=== PATIENT | male | born 1970 | race African-American/Black ===

== ENCOUNTER 2020-02-22 12:19 | Emergency (ER) | payer OTHER ==
--- NOTE | 2020-02-22 12:34 | PDOC ---
Rapid Medical Evaluation Time Seen by Provider: 02/22/20 12:29 Medical Evaluation: Allergies Allergy/AdvReac Type Severity Reaction Status Date / Time No Known Allergies Allergy Verified 05/17/16 21:55 02/22/20 12:29 Pt presents for evaluation of elevated BP. Sent from for a pressure of 210/90. Pt off his HTN meds as he is switching PCP and ran out of medication. Currently asymptomatic Exam: RRR, S1S2 present, no acute distress. BP here 182/130 Orders: EKG; defer other orders to provider Pt to proceed to the ER for further evaluation Discharge Disposition - Diagnosis Hypertension - Referrals - Patient Instructions - Post Discharge Activity
[2020-02-22 12:35] VITALS: TEMP 98.4; BMI 37.2
[2020-02-22] MEDS ORDERED: LISINOPRIL 10 MG TABLET (FP) PO ONE (13:20)
[2020-02-22] MEDS ORDERED: amLODIPine BESYLATE 5 MG TABLET (FP) PO ONE (13:20)
[2020-02-22] MEDS ORDERED: LISINOPRIL 5 MG TABLET (FP) ONE (13:35)
[2020-02-22] MEDS ORDERED: amLODIPine BESYLATE 5 MG TABLET (FP) ONE (13:40)
--- NOTE | 2020-02-22 14:05 | EKG ---
Test Reason : Blood Pressure : / mmHG Vent. Rate : 087 BPM Atrial Rate : 087 BPM P-R Int : 180 ms QRS Dur : 092 ms QT Int : 362 ms P-R-T Axes : 061 -36 014 degrees QTc Int : 435 ms NORMAL SINUS RHYTHM LEFT AXIS DEVIATION POSSIBLE ANTERIOR INFARCT , AGE UNDETERMINED ABNORMAL ECG NO PREVIOUS ECGS AVAILABLE Confirmed by PANKAJ TUCKER MD ([id number]) on 02/22/2020 2:05:43 PM Referred By: Confirmed By:PANKAJ TUCKER MD
--- NOTE | 2020-02-22 15:19 | PDOC ---
History of Present Illness - General Chief Complaint: Blood Pressure Problem Stated Complaint: HYPERTENSION Time Seen by Provider: 02/22/20 12:29 - History of Present Illness Initial Comments: 02/22/20 15:22 49yo M w/ PMHx HTN sent from urgent care where his BP was elevated. Pt ran out of daily meds 2wks ago. Last night he ate a big salty fish dinner. This AM, between the dinner and the having no meds, he went to urgent care to request refills. They found him hypertensive and sent him to the ED. On presentation he reports no symptoms. -no dizziness or headache. -no vision or hearing changes. - no belly, chest, or back pain. - no weakness, paresthesia, or altered mentation. - no n/v/d. no recent illness. Past History - Medical History Allergies/Adverse Reactions: Allergies Allergy/AdvReac Type Severity Reaction Status Date / Time No Known Allergies Allergy Verified 02/22/20 12:29 Home Medications: Ambulatory Orders Amlodipine Besylate 5 mg PO DAILY 14 Days #14 tablet 02/22/20 Amlodipine Besylate [Norvasc -] 5 mg PO DAILY 02/22/20 Lisinopril [Prinivil] 10 mg PO DAILY 02/22/20 Lisinopril [Prinivil] 10 mg PO DAILY 14 Days #14 tablet 02/22/20 COPD: No HTN: Yes - Immunization History Immunization Up to Date: Yes - Psycho-Social/Smoking History Smoking History: Never smoked Have you smoked in the past 12 months: No Number of Cigarettes Smoked Daily: 0 - Substance Abuse Hx (Audit-C & DAST Scrn) How often the patient has a drink containing alcohol: Monthly or less Number of drinks the patient has on a typical day: 1 or 2 How often the patient has six or more drinks on one occasion: Never Score: In Men: 4 or > Positive; In Women: 3 or > Positive: 1 Screen Result (Pos requires Nsg. Audit-10AR): Negative In the last yr the pt used illegal drug/Rx for NonMed reason: No Score: Yes response is considered Positive: 0 Screen Result (Positive result requires Nsg. DAST-10): Negative Review of Systems - Review of Systems Able to Perform ROS?: Yes Is the patient limited Armenian proficient: No Constitutional: No: Chills, Diaphoresis, Fever, Loss of Appetite, Malaise, Weakness HEENTM: No: Blurred Vision, Recent change in vision, Tinnitus, Hearing Loss, Difficulty Swallowing Respiratory: No: Cough, Shortness of Breath, SOB with Exertion, SOB at Rest, Stridor, Wheezing Cardiac (ROS): No: Chest Pain, Edema, Irregular Heart Rate, Lightheadedness, Palpitations, Syncope ABD/GI: No: Abdominal Distended, Constipated, Diarrhea, Nausea, Vomiting, Indigestion : No: Burning, Dysuria, Discharge Musculoskeletal: No: Back Pain, Muscle Pain, Muscle Weakness Integumentary: No: Rash Neurological: No: Headache, Numbness, Paresthesia, Seizure, Tingling, Tremors, Weakness, Unsteady Gait, Dizziness All Other Systems: Reviewed and Negative *Physical Exam - Vital Signs Last Vital Signs Temp Pulse Resp BP Pulse Ox 98.4 F 101 H 18 188/103 H 97 02/22/20 12:29 02/22/20 13:50 02/22/20 13:50 02/22/20 13:50 02/22/20 13:50 - Physical Exam General Appearance: Yes: Nourished, Appropriately Dressed. No: Apparent Distress, Disheveled HEENT: positive: EOMI, Normal ENT Inspection, Normal Voice, Sinus Tenderness Neck: positive: Trachea midline. negative: Tender Respiratory/Chest: positive: Lungs Clear, Normal Breath Sounds. negative: Chest Tender, Respiratory Distress, Accessory Muscle Use, Rapid RR Cardiovascular: positive: Regular Rhythm, Regular Rate Gastrointestinal/Abdominal: positive: Normal Bowel Sounds. negative: Tender Musculoskeletal: positive: Normal Inspection. negative: CVA Tenderness Extremity: positive: Normal Capillary Refill, Normal Inspection, Normal Range of Motion Integumentary: positive: Normal Color, Dry, Warm Neurologic: positive: Fully Oriented, Alert, Normal Mood/Affect, Normal Response, Motor Strength 5/5. negative: Facial Droop, Numbness ED Treatment Course - Medications Given in the ED: ED Medications Discontinued Medications Generic Name Dose Route Start Last Admin Trade Name Freq PRN Reason Stop Dose Admin Amlodipine Besylate 5 mg 02/22/20 13:20 02/22/20 13:51 Norvasc - PO 02/22/20 13:21 5 mg ONCE ONE Administration Lisinopril 10 mg 02/22/20 13:20 02/22/20 13:52 Prinivil PO 02/22/20 13:21 10 mg ONCE ONE Administration Medical Decision Making - Medical Decision Making 02/22/20 15:42 49yo M w/ PMHx HTN p/w asymptomatic HTN. No signs of end-organ damage due to HTN. He reports some ankle swelling from an old ankle injury that sometimes swells. out of abundance of caution, will duplex scan his legs for DVT. -> Scan negative for DVT. States he has an appointment with new PCP at end of March. No sx reported -> asymptomatic HTN -> will send home meds script for 2wks and referral to [facility] as a bridge until he can see his PCP. 02/22/20 16:07 02/22/20 16:08 02/22/20 16:09 Discharge - Discharge Information Problems reviewed: Yes Clinical Impression/Diagnosis: Hypertension Qualifiers: Hypertension type: unspecified Qualified Code(s): I10 - Essential (primary) hypertension - Admission No - Additional Discharge Information Prescriptions: Amlodipine Besylate 5 mg PO DAILY 14 Days #14 tablet Lisinopril [Prinivil] 10 mg PO DAILY 14 Days #14 tablet - Follow up/Referral Referrals: [facility] [place] [Provider Group] - Patient Discharge Instructions Patient Printed Discharge Instructions: DI for High Blood Pressure, How to Monitor Your Blood Pressure at Home Additional Instructions: You came to the ED today w/ HTN after running out of your blood pressure meds and eating a salty fish dinner. We wrote you a 2-week prescription for your home meds and gave you a referral for our [facility]. The contact information is listed in this packet. Please call them today and make an appointment for as soon as possible. Come back to the emergency department if you develop any symptoms or complications. - Post Discharge Activity Work/Back to School Note: Back to Work
--- NOTE | 2020-02-22 15:46 | PDOC ---
Documentation entered by Josephine Johnson SCRIBE, acting as scribe for Feroz Arauz MD. Feroz Arauz MD: This documentation has been prepared by the Elizabeth steele Xhesika, SCRIBE, under my direction and personally reviewed by me in its entirety. I confirm that the documentation accurately reflects all work, treatment, procedures, and medical decision making performed by me. Attending Attestation - Resident Resident Name: Adrian Ramirez - ED Attending Attestation I have performed the following: I have examined & evaluated the patient, The case was reviewed & discussed with the resident, I agree w/resident's findings & plan, Exceptions are as noted - HPI HPI: 02/22/20 13:40 The patient is a 49 year old male with a PMH of HTN who presents to the ED for hypertension control. Pt states she ran out of his HTN meds (amlodipine and Lisinopril) 2 weeks ago. Pt states he went to Urgent Care for her BP medication, was found to be hypertensive and was sent to the ED for further evaluation. Pt states he had a big fish dinner last night. Pt is assymptomatic currently. Pt denies chest pain, shortness of breath, headache, dizziness, blurry vision, and abdominal pain. Denies fever, chills, cough, nausea, vomiting, and constipation. Denies dysuria, frequency, urgency and hematuria. Allergy: NKDA Social: Denies alcohol, cigarette or drug use. - Physicial Exam PE: 02/22/20 14:26 Vitals: Triage Vital signs reviewed General Appearance: no acute distress, well nourished well developed, Neck: Supple;No Nuchal rigidity Cardiac: Regular rate and rhythm, no murmurs, no rubs, no gallops, Lungs: Clear to auscultation bilateral, good air movement bilaterally, Abdomen: Soft, nondistended, normal bowel sounds, nontender to palpation Extremities: Full range of motion to all extremities, no cyanosis, clubbing, or edema Skin: Warm and dry, no rashes or lesions, no petechiae Neuro: AOX3; Cranial Nerves 2-12 grossly c intact, Strength intact to all extremities, Sensation intact to all extremities Psych: normal mood, normal affect - Medical Decision Making 02/22/20 15:50 49 years old with asymptomatic hypertension No complaints at this time no chest pain no shortness of breath Requesting refills on his medications We prescribed a 2-week refill for patient. Rechecked his blood pressure We will arrange patient to follow-up within the week for BP check and medication adjustment Findings, need for follow-up and strict return instructions discussed with patient. Discharge - Discharge Information Problems reviewed: Yes Clinical Impression/Diagnosis: Hypertension Qualifiers: Hypertension type: unspecified Qualified Code(s): I10 - Essential (primary) hypertension Disposition: HOME - Additional Discharge Information Prescriptions: Amlodipine Besylate 5 mg PO DAILY 14 Days #14 tablet Lisinopril [Prinivil] 10 mg PO DAILY 14 Days #14 tablet - Follow up/Referral Referrals: [facility] [place] [facility] [place] [Provider Group] - Patient Discharge Instructions Patient Printed Discharge Instructions: DI for High Blood Pressure, How to Monitor Your Blood Pressure at Home Additional Instructions: You came to the ED today w/ HTN after running out of your blood pressure meds and eating a salty fish dinner. We wrote you a 2-week prescription for your home meds and gave you a referral for our [facility]. The contact information is listed in this packet. Please call them today and make an appointment for as soon as possible. Come back to the emergency department if you develop any symptoms or complications. - Post Discharge Activity Work/Back to School Note: Back to Work
[2020-02-22 15:56] VITALS: BP 196/129; PULSE 87
== END 2020-02-22 16:11 | disposition home or self-care (01) ==
LOC: JER 12:19
DX: I10 Essential (primary) hypertension (principal)
CPT/HCPCS: 93005; 93010; 93971-TC; 99284-25

== ENCOUNTER 2021-01-09 06:37 | Emergency (ER) | payer OTHER ==
[2021-01-09 06:54] VITALS: BP 151/117; PULSE 90; TEMP 97.9; BMI 34.9
[2021-01-09] MEDS ORDERED: KETOROLAC TROMETHAMINE 60 MG/2 ML VIAL IM ONE (07:34)
[2021-01-09] MEDS ORDERED: KETOROLAC TROMETHAMINE 30 MG/1 ML VIAL ONE (08:03)
== END 2021-01-09 09:00 | disposition home or self-care (01) ==
LOC: JER 06:37
PROC: 3E0233Z Introduction of Anti-inflammatory into Muscle, Percutaneous Approach (ICD-10-PCS; principal; 2021-01-09)
DX: M10.022 Idiopathic gout, left elbow (principal)
CPT/HCPCS: 73070-TC-LT-FY; 99284-25

== ENCOUNTER 2022-09-11 05:41 | Emergency (ER) | payer OTHER, BC ==
[2022-09-11 05:54] VITALS: BMI 34.9
[2022-09-11] MEDS ORDERED: IBUPROFEN 400 MG TABLET (FP) PO ONE ×2 (07:20→07:31)
[2022-09-11] MEDS ORDERED: amLODIPine BESYLATE 5 MG TABLET (FP) PO ONE (07:22)
[2022-09-11] MEDS ORDERED: LISINOPRIL 10 MG TABLET PO ONE (07:22)
[2022-09-11] MEDS ORDERED: amLODIPine BESYLATE 5 MG TABLET (FP) ONE (07:30)
[2022-09-11] MEDS ORDERED: LISINOPRIL 10 MG TABLET ONE (07:31)
[2022-09-11 11:57] VITALS: BP 171/108; PULSE 99; RESP 20; TEMP 97.6
== END 2022-09-11 12:38 | disposition home or self-care (01) ==
LOC: JER 05:41
DX: M25.571 Pain in right ankle and joints of right foot (principal); R22.41 Localized swelling, mass and lump, right lower limb; X50.1XXA Overexertion from prolonged static or awkward postures, initial encounter; Y99.0 Civilian activity done for income or pay
CPT/HCPCS: 71045-TC-FY; 73610-TC-RT-FY; 73630-TC-RT-FY; 73700-TC-RT; 93005; 93010; 93971-TC; 99285-25

== ENCOUNTER 2024-02-06 13:21 | Emergency (ER) | payer OTHER ==
[2024-02-06 13:28] VITALS: BP 161/104; PULSE 96; RESP 19; TEMP 97.6; BMI 34.9
[2024-02-06] MEDS ORDERED: KETOROLAC TROMETHAMINE 30 MG/1 ML VIAL ONE (14:16)
[2024-02-06] MEDS: KETOROLAC TROMETHAMINE 30 MG/1 ML VIAL IM ONE (15:29)
== END 2024-02-06 16:32 | disposition home or self-care (01) ==
LOC: JERFT 13:21
PROC: 3E0233Z Introduction of Anti-inflammatory into Muscle, Percutaneous Approach (ICD-10-PCS; principal; 2024-02-06)
DX: M54.2 Cervicalgia (principal); M54.6 Pain in thoracic spine; M54.50 Low back pain, unspecified; W20.8XXA Other cause of strike by thrown, projected or falling object, initial encounter; Y99.0 Civilian activity done for income or pay
CPT/HCPCS: 70450-TC; 72125-TC; 99284-25